=== PATIENT | female | born 1960 | race Asian ===

== ENCOUNTER 2022-06-11 06:01 | Emergency (ER) | payer BC, SELFPAY ==
[2022-06-11] VITALS (40 sets, daily range): BP systolic 104–200; BP diastolic 48–105; PULSE 52–86; RESP 16–30; TEMP 36.6; O2SAT 98–100
--- NOTE | ~2022-06-11 | XR_ITS ---
EXAMINATION: XR chest 1V portable DATE: 06/11/2022 06:31 INDICATION: Dyspnea. TECHNIQUE: A single frontal view of the chest was obtained. COMPARISON: None. FINDINGS: There is a diffuse interstitial pattern in the lungs. There are airspace opacities in the l ower lung zones. No pleural effusion or pneumothorax. Cardiomegaly is noted. IMPRESSION: 1. Diffuse lung disease, likely mild pulmonary edema and basilar atelectasis versus pneumonia. 2. Cardiomegaly. Reviewed, dictated and finalized at location A. IMPRESSION: 1. Diffuse lung disease, likely mild pulmonary edema and basilar atelectasis ve rsus pneumonia. 2. Cardiomegaly.
--- NOTE | 2022-06-11 06:12 | ECG_ITS ---
Measurements Intervals [place] Rate: 75 P: -3 KS: 153 QRS: 11 QRSD: 93 T: -12 QT: 388 QTc: 434 Interpretive Statements SINUS RHYTHM VOLTAGE CRITERIA FOR LVH Electronically Signed On 06-11-2022 11:23:55 CDT by Junito Herrera M.D.
[2022-06-11] MEDS: NITROGLYCERIN/D5W 200 MCG/ML 50 MG/250 ML BTL 75 MG IV CONT (06:18)
[2022-06-11 06:33] LABS: Basophils Absolute Auto 0.09 K/mm3 (0.00-0.10); Basophils Percent Auto 0.6 % (0.0-1.0); Eosinophils Absolute Auto 0.67 K/mm3 (0.02-0.50); Eosinophils Percent Auto 4.8 % (1.0-6.0); Hemoglobin 10.5 g/dL (12.0-15.0); Immature Granulocyte Absolute 0.09 K/mm3 (0.00-0.00); Immature Granulocyte Percent A 0.6 % (0.0-0.0); Lymphocytes Absolute Auto 2.65 K/mm3 (1.10-4.50); Mean Corpuscular Hemoglobin 26.1 pg (27.0-31.0); Mean Corpuscular Volume 86.8 fL (78.0-102.0); Mean Platelet Volume 12.8 fl (9.2-11.8); Monocytes Absolute Auto 1.01 K/mm3 (0.10-0.90); Monocytes Percent Auto 7.2 % (2.0-11.0); Neutrophils Absolute Auto 9.5 K/mm3 (1.7-7.2); Neutrophils Percent Auto 67.8 % (50.0-70.0); Platelet Count Result 277 K/mm3 (150-420); Red Blood Count 4.03 M/mm3 (4.20-5.40); Red Cell Distribution Width 13.5 % (11.6-14.4)
--- NOTE | 2022-06-11 06:40 | ED.GENADULT ---
HPI - General Adult General Chief complaint: Shortness of Breath/Dyspnea Stated complaint: sob Source: patient Limitations: language barrier History of Present Illness HPI narrative: This is a 61-year-old female is not speaking was present ED with sudden onset of shortness of breath. Approximately 3:00 a.m. this morning she started to develop severe shortness of breath. EMS was then called she was brought to the hospital. EN route she was given a DuoNeb treatment. Here in the emergency department she is hypertensive and respiratory distress. The daughter states that she has not been taking any of her medications and has been pursuing homeopathic remedies instead. She had been feeling well until earlier this morning. Related Data Allergies Allergy/AdvReac Type Severity Reaction Status Date / Time No Known Allergies Allergy Verified 06/11/22 06:52 Review of Systems Constitutional: Constitutional: Denies fatigue Eyes: Eyes: Denies change in vision ENT: Denies dysphagia Cardiovascular: Cardiovascular: Denies chest pain Respiratory: Respiratory: Reports dyspnea Gastrointestinal: Gastrointestinal: Denies abdominal pain Genitourinary: Genitourinary: Denies dysuria Musculoskeletal: Musculoskeletal: Denies myalgias Integumentary/Breasts: Skin/Breast: Denies rash Neurologic: Denies confusion Psychiatric: Psychiatric: Denies anxiety Endocrine: Endocrine: Denies excessive sweating Hematologic/Lymphatic: Hematologic/Lymphatic: Denies easy bleeding Allergic/Immunologic: Allergic/Immunologic: Denies lip swelling PMFSH Past Medical History Medical History CAD (coronary artery disease) Diabetes HTN (hypertension) Surgical History Surgical History Hx of CABG Exam Narrative: Patient is seen by obvious respiratory distress. Const: Nutritional Appearance: well nourished Orientation/consciousness: patient oriented x3 Limitations: language barrier HENMT: Head: normal to inspection Eyes: Conjunctivae: conjunctivae normal Pupils: Equal, round and reactive pupils present EOM: EOMs intact bilaterally Neck: Neck: normal visual inspection Chest: Chest palpation & inspection: normal inspection of the chest Resp: Effort & Inspection: labored, retractions, tachypneic and uses accessory muscles Auscultation: crackles Other: Point of care ultrasound revealed B lines in all lung frias. Cardio: Rate: tachycardic Rhythm: regular rhythm GI: GI Palp: Yes Soft to palpation, No Tenderness to palpation present (GI) and No Guarding due to palpation present (GI) : General: Yes bladder normal to palpation Back/Spine/Pelvis: Back: no CVA tenderness Skin: General skin exam: normal color Neuro: General: patient oriented x3 Speech: normal speech Extrem: General: normal to inspection and no pedal edema Psych: Affect: normal affect Attitude: cooperative Medical Decision Making [facility] Narrative Medical decision making narrative: This is a 61-year-old female presenting to ED in respiratory distress. Patient presentation is consistent with SCAPE. She was given 1.2 mg of sublingual nitro. She was placed on BiPAP 5/10/100%. IV was started by myself lab work was obtained. Patient was started on a nitro drip at 200 micrograms/minute. On re-evaluation patient's respiratory status is improved. She will be started on her oral antihypertensive enalapril. she is given 20 mg of IV Lasix.. The patient has been signed out to the oncoming physician pending completion of workup. EKG interpretation Rhythm sinus, rate 75, axis normal, MD interval normal, QRS narrow, QTC interval normal, ST-elevation negative for concerning inversions. Lab Data Result diagrams: 06/11/22 06:24 06/11/22 06:24 Labs: Lab Results 06/11/22 06/11/22 06/11/22 Range/Units 06:24 06:24 0
--- NOTE | 2022-06-11 06:52 | PC.NURSE ---
Addendum entered by Simone Powell RN 06/11/22 07:41: language - [facility] Original Note: pt is non-Samoan speaking - [facility]. pt has a family member at bedside who is translating for staff at this time.
[2022-06-11 06:55] LABS: Anion Gap 11 mmol/L (8-16); Blood Urea Nitrogen 29 mg/dL (7-18); Calcium 8.9 mg/dL (8.5-10.1); Carbon Dioxide 20 mmol/L (21-32); Chloride 105 mmol/L (98-108); Estimated Glomerular Filt Rate 38; Glucose 205 mg/dL (70-99); Osmolality Calculated 293 mOsm/kg (285-295); Potassium 4.6 mmol/L (3.5-5.1); Sodium 136 mmol/L (136-145); Troponin I 55.8 ng/L (0.00-60.4)
[2022-06-11 06:56] LABS: NT Pro B Type Natriuretic Pept 1719 pg/mL (0-125)
--- NOTE | 2022-06-11 07:07 | PC.NURSE ---
0636 - Covid swab sent to lab
--- NOTE | 2022-06-11 07:07 | PC.NURSE ---
Md Webb reduce bi-pap oxygen setting to 60% - this staff member updated cardio-pulmonology with setting change.
[2022-06-11] MEDS: NITROGLYCERIN SL 0.4 MG TABLET 1.2 MG SUBLINGUAL (07:12)
--- NOTE | 2022-06-11 07:13 | PC.NURSE ---
Pt arrive via [facility] with SOB, elevated blood pressure and receiving and nebulizer treatment with
--- NOTE | 2022-06-11 07:15 | PC.NURSE ---
pt arrive via [facility] in respirator distress and elevated blood pressure. pt treatment with medications started before patient was registered. pt received nitroglycerine 1.2mg sublingual (3 tablets) at 0558, IV nitroglycerine started at 200mcg/min at 0618, nitroglycerine rate increased from 200mcg/min to 250mcg/min at 0638 per md Webb.
[2022-06-11 07:16] LABS: SARS-CoV-2 RNA PCR Negative (Negative)
[2022-06-11] MEDS: ASPIRIN 81 MG CHEWABLE TABLET 324 MG PO (07:19)
[2022-06-11] MEDS: FUROSEMIDE INJ 20 MG/2 ML VIAL IV PUSH (07:21)
[2022-06-11] MEDS: ENALAPRIL MALEATE 5 MG TABLET 20 MG PO (07:32)
--- NOTE | 2022-06-11 07:35 | PC.NURSE ---
nitro drip was initiated and titrated @ 0638 by NANCI Nichols.
--- NOTE | 2022-06-11 07:36 | PC.NURSE ---
report from NANCI Nichols. pt is on bipap at this time, daughter at bedside. gaines catheter was placed due to pt unable to control urine and for measurement. pt was incontinent of urine prior to administration. pt states she is feeling better at this time. nitro drip continues as ordered. pt is awaiting return call from [facility] at this time. will continue to monitor.
--- NOTE | 2022-06-11 07:47 | PC.NURSE ---
face sheet faxed to [facility]
[2022-06-11] MEDS: NITROGLYCERIN/D5W 200 MCG/ML 50 MG/250 ML BTL 60 MG IV CONT (08:05)
[2022-06-11] MEDS: hydrALAZINE HCL 20 MG/ML VIAL 10 MG IV PUSH (08:12)
--- NOTE | 2022-06-11 08:18 | PC.NURSE ---
pt has been accepted to [facility] under rn neonatal Dr Echeverria. pt c/o dempsey, erp ordered medication and it was given as directed without difficulty. pt and family are aware of plan of care. nad noted at this time. will continue to monitor. pt is currently awaiting room assignment for transfer.
--- NOTE | 2022-06-11 08:39 | PC.NURSE ---
pt is requesting bipap to be removed. per erp to dc bipap, resp tech notified. nitro drip paused at this time due to bp 104/54. ERP aware. will continue to monitor.
--- NOTE | 2022-06-11 08:49 | PC.NURSE ---
0848 pt removed from bipap and placed on 2l o2.
[2022-06-11 09:48] LABS: Troponin I 283.7 ng/L (0.00-60.4)
--- NOTE | 2022-06-11 09:59 | PC.NURSE ---
1200ml total urine output, gaines bag drained prior to transport
--- NOTE | 2022-06-11 10:01 | PC.NURSE ---
pt bp 106/71 per ERP to restart the nitro drip at 50mcg/hr prior to transport.
== END 2022-06-11 09:59 | disposition short-term general hospital (02) ==
PROVIDERS: Emergency Provider Emergency Medicine; PCP Family Medicine
DX: I16.0 Hypertensive urgency (principal); N28.9 Disorder of kidney and ureter, unspecified; E11.65 Type 2 diabetes mellitus with hyperglycemia; I25.10 Atherosclerotic heart disease of native coronary artery without angina pectoris; Z20.822 Contact with and (suspected) exposure to COVID-19
CPT/HCPCS: 36415; 71045; 80048; 83880; 84484; 85025; 93005; 96365; 96366; 96375; 99285; A9270; C9803; J0360; J1940; U0003; U0005

== ENCOUNTER 2022-10-15 15:30 | Emergency (ER) | payer BC, SELFPAY ==
[2022-10-15] VITALS (13 sets, daily range): BP systolic 154–221; BP diastolic 58–82; PULSE 54–78; RESP 16–21; TEMP 36.4–36.9; O2SAT 98–99
--- NOTE | 2022-10-15 17:22 | ED.GENADULT ---
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 pt was asymptomatic Onset (ago): hour(s) (4) Radiation: non-radiation Severity: mild Pain Consistency: other (pain-free) Relieving factors: none Exacerbating factors: none Associated symptoms: denies other symptoms Related Data Home Medications Medication Instructions Recorded Confirmed glimepiride 2 mg tablet 2 mg PO BID 06/11/22 06/11/22 insulin glargine 100 unit/mL (3 40 unit subcut DAILY 06/11/22 06/11/22 mL) subcutaneous pen (Lantus Solostar U-100 Insulin) metoprolol succinate 25 mg 25 mg PO BID 06/11/22 06/11/22 tablet,extended release 24 hr aspirin 81 mg tablet,delayed 81 mg PO DAILY 10/15/22 10/15/22 release clopidogrel 75 mg tablet 75 mg PO DAILY 10/15/22 10/15/22 hydralazine 100 mg tablet 100 mg PO TID 10/15/22 10/15/22 isosorbide mononitrate 30 mg 30 mg PO DAILY 10/15/22 10/15/22 tablet,extended release 24 hr losartan 50 mg tablet 50 mg PO DAILY 10/15/22 10/15/22 nifedipine 60 mg tablet,extended 60 mg PO DAILY 10/15/22 10/15/22 release 24 hr Allergies Allergy/AdvReac Type Severity Reaction Status Date / Time No Known Allergies Allergy Verified 10/15/22 15:45 Review of Systems Review of Systems: All systems reviewed & are unremarkable except as noted in HPI and below Constitutional: Constitutional: Reports no additional constitutional complaints Eyes: Eyes: Reports no additional eye complaints ENT: Reports system reviewed and no additional complaints, except as documented Cardiovascular: Cardiovascular: Reports no additional cardiovascular complaints Respiratory: Respiratory: Reports no additional respiratory complaints Gastrointestinal: Gastrointestinal: Reports no additional gastrointestinal complaints Genitourinary: Genitourinary: Reports no additional female genitourinary complaints Musculoskeletal: Musculoskeletal: Reports no additional musculoskeletal complaints Integumentary/Breasts: Skin/Breast: Reports system reviewed and no additional complaints, except as docu Neurologic: Reports system reviewed and no additional complaints, except as documented Psychiatric: Psychiatric: Reports no additional psychiatric complaints Endocrine: Endocrine: Reports no additional endocrine complaints Hematologic/Lymphatic: Hematologic/Lymphatic: Reports no additional hematologic/lymphatic complaints Allergic/Immunologic: Allergic/Immunologic: Reports no additional allergic/immunologic complaints PMFSH Past Medical History Medical History CAD (coronary artery disease) Diabetes HTN (hypertension) Surgical History Surgical History Hx of CABG Exam Const: General: healthy appearing, no acute distress and well nourished Nutritional Appearance: well nourished Orientation/consciousness: patient oriented x3 Limitations: no limitations HENMT: Head: normal to inspection Ears: external ears normal, TM's normal bilaterally and EAC's normal Face/Nose/Sinus: Normal external nose present, Normal nares present, normal facial exam and sinuses nontender Face and sinus: normal facial exam and sinuses nontender Mouth: Yes Normal oral and palatal mucosa present and Yes moist mucous membranes Teeth and gingiva: dentition normal Throat: posterior oropharynx normal Eyes: Conjunctivae: conjunctivae normal Pupils: Equal, round and reactive pupils present EOM: EOMs intact bilaterally Neck: Neck: normal visual inspection, no lymphadenopathy and no meningeal signs Chest: Chest palpation & inspection: normal inspection of the chest Resp: Effort & Inspection: no
== END 2022-10-15 17:48 | disposition home or self-care (01) ==
PROVIDERS: Emergency Provider Emergency Medicine
DX: I10 Essential (primary) hypertension (principal)
CPT/HCPCS: 99283

== ENCOUNTER 2022-12-04 23:25 | Emergency (ER) | payer BC, SELFPAY ==
--- NOTE | ~2022-12-04 | XR_ITS ---
Clinical Indication: Dyspnea PA and lateral views of the chest: Comparison: 06/11/2022 Findings: Probable mild extensive groundglass opacity, sparing the upper lobes. Cardiomediastinal si lhouette is within normal limits. Bones and soft tissues are unremarkable. Impression: Probable extensive groundglass opacity, with relative sparing of the upper lobes. Correlate for mild pulmonary edema versus atypical infection. Reviewed, dictated and finalized at location M. LOGGER Impression: Probable extensive groundglass opacity, with relative sparing of the upper lobe s. Correlate for mild pulmonary edema versus atypical infection.
--- NOTE | 2022-12-04 23:27 | ED.SOB ---
HPI - SOB/Dyspnea General Chief Complaint: Shortness of Breath/Dyspnea Stated Complaint: SOB Time Seen by Provider: 12/04/22 23:27 Source: patient, family, EMS and RN notes reviewed Mode of arrival: EMS Limitations: language barrier ( [id number] translates for her) History of Present Illness MD elicited complaint: shortness of breath Pertinent past history: congestive heart failure and diabetes Onset (ago): day(s) (1) Timing: constant Severity: moderate Exacerbating factors: exertion Relieving factors: oxygen Known history of: congestive heart failure and diabetes Associated symptoms: wheezing Treatment prior to arrival: oxygen and bronchodilator Related Data Home oxygen amount: none Home Medications Medication Instructions Recorded Confirmed glimepiride 2 mg tablet 2 mg PO BID 06/11/22 12/05/22 insulin glargine 100 unit/mL (3 40 unit subcut DAILY 06/11/22 12/05/22 mL) subcutaneous pen (Lantus Solostar U-100 Insulin) metoprolol succinate 25 mg 25 mg PO BID 06/11/22 12/05/22 tablet,extended release 24 hr aspirin 81 mg tablet,delayed 81 mg PO DAILY 10/15/22 12/05/22 release clopidogrel 75 mg tablet 75 mg PO DAILY 10/15/22 12/05/22 hydralazine 100 mg tablet 100 mg PO TID 10/15/22 12/05/22 isosorbide mononitrate 30 mg 30 mg PO DAILY 10/15/22 12/05/22 tablet,extended release 24 hr losartan 50 mg tablet 50 mg PO DAILY 10/15/22 12/05/22 nifedipine 60 mg tablet,extended 60 mg PO DAILY 10/15/22 10/15/22 release 24 hr escitalopram oxalate 5 mg tablet mg 12/04/22 Allergies Allergy/AdvReac Type Severity Reaction Status Date / Time No Known Allergies Allergy Verified 10/15/22 15:45 Review of Systems Review of Systems: All systems reviewed & are unremarkable except as noted in HPI and below Constitutional: Constitutional: Denies chills, Denies excessive sweating and Denies fever(s) Cardiovascular: Cardiovascular: Denies chest pain Respiratory: Respiratory: Reports as per HPI Gastrointestinal: Gastrointestinal: Denies nausea and Denies vomiting Genitourinary: Genitourinary: Denies hematuria and Denies nocturia [facility] Past Medical History Medical History (Updated 12/06/22 @ 00:01 by Background Marni) CAD (coronary artery disease) CHF (congestive heart failure) Diabetes HTN (hypertension) Surgical History Surgical History (Updated 12/04/22 @ 23:28 by Anirudh Dia MD) History of coronary angioplasty with insertion of stent History of renal stent Hx of CABG Social History Social History (Updated 12/04/22 @ 23:44 by Anirudh Dia MD) Smoking status: Never smoker Alcohol intake: never Substance use: never Exam Const: General: ill appearing acutely Nutritional Appearance: well nourished and obese centrally obese Orientation/consciousness: patient oriented x3 Limitations: language barrier HENMT: Head: normal to inspection Ears: external ears normal Face/Nose/Sinus: Normal external nose present Face and sinus: normal facial exam Mouth: Yes moist mucous membranes Eyes: Conjunctivae: conjunctivae normal Pupils: Equal, round and reactive pupils present EOM: EOMs intact bilaterally Neck: Neck: normal visual inspection Resp: Auscultation: crackles bilateral at the base and localized and no wheezes Cardio: Rate: regular rate Rhythm: regular rhythm GI: GI Palp: Yes Soft to palpation and No Tenderness to palpation present (GI) Auscultation: normal bowel sounds Back/Spine/Pelvis: Cervical Spine: cervical ROM normal Thoracic/Lumbar Spine: thoraco-lumbar ROM normal Skin: General skin exam: normal color Rashes: no rashes Neuro: General: patient oriented x3, moves all extremities, no focal motor deficits and CN's II-XI intact bilaterally Speech: normal speech Gait exam (Neuro): Normal gait present Extrem: General: normal to inspection and no clubbing, cyanosis or edema Psych: Mental Status: mental status grossly normal Affect: normal affect Attitude: cooperati
[2022-12-04 23:34] VITALS: BP 160/114; PULSE 71; RESP 20; TEMP 36.6; O2SAT 100
[2022-12-04 23:37] VITALS: PULSE 69; O2SAT 99
--- NOTE | 2022-12-04 23:40 | ECG_ITS ---
Measurements Intervals [place] Rate: 64 P: 55 CT: 170 QRS: -4 QRSD: 86 T: -11 QT: 413 QTc: 427 Interpretive Statements SINUS RHYTHM EARLY PRECORDIAL R/S TRANSITION LEFT VENTRICULAR HYPERTROPHY BASELINE ARTIFACT- I, II, III, AVR, AVL, AVF, V1-V6 BORDERLINE ECG NO PREVIOUS ECG AVAILABLE FOR COMPARISON Electronically Signed On 12-05-2022 7:36:02 [employer]GER [employer] by Wei Palmer D.O.
[2022-12-05 00:08] LABS: Basophils Absolute Auto 0.07 K/mm3 (0.00-0.10); Basophils Percent Auto 0.7 % (0.0-1.0); Eosinophils Absolute Auto 0.82 K/mm3 (0.02-0.50); Eosinophils Percent Auto 7.8 % (1.0-6.0); Hematocrit 31.5 % (35.0-49.0); Hemoglobin 9.5 g/dL (12.0-15.0); Immature Granulocyte Absolute 0.07 K/mm3 (0.00-0.00); Immature Granulocyte Percent A 0.7 % (0.0-0.0); Lymphocytes Absolute Auto 0.98 K/mm3 (1.10-4.50); Lymphocytes Percent Auto 9.3 % (18.0-42.0); Mean Corpuscular HGB Conc 30.2 g/dL (32.0-36.0); Mean Corpuscular Hemoglobin 24.4 pg (27.0-31.0); Mean Platelet Volume 11.7 fl (9.2-11.8); Monocytes Absolute Auto 0.93 K/mm3 (0.10-0.90); Monocytes Percent Auto 8.9 % (2.0-11.0); Neutrophils Absolute Auto 7.6 K/mm3 (1.7-7.2); Neutrophils Percent Auto 72.6 % (50.0-70.0); Platelet Count Result 290 K/mm3 (150-420); Red Blood Count 3.89 M/mm3 (4.20-5.40); Red Cell Distribution Width 14.3 % (11.6-14.4); White Blood Count 10.5 K/mm3 (4.8-10.8)
[2022-12-05 00:20] LABS: INR 1.1; Prothrombin Time 12.2 Seconds (9.50-12.10)
[2022-12-05 00:22] LABS: Base Excess ABG -1.9 mmol/L (0-2); HCO3 ABG 20.5 mmol/L (23-29); Oxygen Content ABG 14.8 %vol (16.0-22.0); Oxygen Saturation ABG 97.3 % (95-97); Oxyhemoglobin 96.6 % (94-100); PCO2 ABG 27.8 mmHg (35-45); PO2 ABG 99.1 mmHg (80-90); Total Hemoglobin 10.8 g/dL (12.0-18.0); pH ABG 7.49 (7.35-7.45)
[2022-12-05 00:23] LABS: Device ROOM AIR; Modified Allen's Test Pass; Site Drawn LEFT BRACHIAL
[2022-12-05 00:24] LABS: Alanine Aminotransferase 41 U/L (14-59); Albumin Level 3.6 g/dL (3.4-5.0); Alkaline Phosphatase 180 U/L (46-116); Anion Gap 11 mmol/L (8-16); Aspartate Amino Transferase 26 U/L (15-37); Bilirubin,Total 0.3 mg/dL (0.00-1.00); Blood Urea Nitrogen 23 mg/dL (7-18); Calcium 8.5 mg/dL (8.5-10.1); Carbon Dioxide 24 mmol/L (21-32); Chloride 102 mmol/L (98-108); Estimated CRCL calculation 39 ml/min; Estimated Glomerular Filt Rate 48; Glucose 274 mg/dL (70-99); Magnesium 1.8 mg/dL (1.8-2.4); NT Pro B Type Natriuretic Pept 750 pg/mL (0-125); Osmolality Calculated 297 mOsm/kg (285-295); Potassium 4.5 mmol/L (3.5-5.1); Sodium 137 mmol/L (136-145); Total Protein 7.9 g/dL (6.4-8.2); Troponin I 35.6 ng/L (0.00-60.4)
[2022-12-05 00:26] LABS: Add Urine Microscopic? YES; Appearance Urine Clear (Clear); Bilirubin Urine Negative (Negative); Blood Urine Trace-Intact (Negative); Color Urine Light Yellow (Yellow); Glucose Urine UA 3+ (Negative); Ketones Urine Negative (Negative); Leukocyte Esterase Ur Negative LEU/UL (Negative); Nitrate Urine Negative (Negative); Protein Urine 2+ (Negative); Urobilinogen Urine 0.2 mg/dL (0.2-1.0); pH Urine 7.5 (5.0-8.0)
[2022-12-05 00:28] LABS: Bacteria Urine Trace /hpf; RBC Urine 0-2 /hpf (0-2); Squamous Epithelial Cell Urine Rare /hpf (Few); WBC Urine 0-3 /hpf (0-3)
[2022-12-05 00:45] LABS: Influenza A QL RT-PCR Negative (Negative); Influenza B QL RT-PCR Negative (Negative); SARS-CoV-2 RNA PCR Negative (Negative)
[2022-12-05 01:11] LABS: D Dimer 0.42 mg/L (0.19-0.50)
[2022-12-05] MEDS: FUROSEMIDE INJ 40 MG/4 ML VIAL IV PUSH (01:27)
[2022-12-05] MEDS: INSULIN HUMAN REGULAR (*BKC) 100 UNITS/ML 10 UNITS SUB-Q (01:36)
[2022-12-05 03:03] VITALS: BP 139/89; PULSE 69; RESP 20; TEMP 36.7; O2SAT 99
== END 2022-12-05 03:05 | disposition home or self-care (01) ==
PROVIDERS: Emergency Provider Emergency Medicine
DX: I11.0 Hypertensive heart disease with heart failure (principal); I50.9 Heart failure, unspecified; I25.10 Atherosclerotic heart disease of native coronary artery without angina pectoris; E11.9 Type 2 diabetes mellitus without complications; Z79.4 Long term (current) use of insulin; Z79.82 Long term (current) use of aspirin; Z20.822 Contact with and (suspected) exposure to COVID-19
CPT/HCPCS: 36415; 36600; 71046; 80053; 81001; 82805; 83735; 83880; 84484; 85025; 85380; 85610; 85730; 87502; 87636; 93005; 96374; 99284; J1815; J1940; U0003; U0005